=== PATIENT | female | born 1960 | race Caucasian/White ===

== ENCOUNTER 2019-11-05 06:05 | Day surgery (SDC) | payer MEDICARE ==
[~2019-11-05] VITALS: Ht 160 cm; Wt 67.6 kg
[~2019-11-05 06:05] MED LIST: Norco 5-325 Ta1 EACH PO
== END 2019-11-05 09:47 | disposition home or self-care (01) ==
LOC: ORSCSDS 06:05
PROVIDERS: Orthopaedic Surgery
PROC: 01S40ZZ Reposition Ulnar Nerve, Open Approach (ICD-10-PCS; principal; 2019-11-05 07:30)
DX: G56.21 Lesion of ulnar nerve, right upper limb (principal); J44.9 Chronic obstructive pulmonary disease, unspecified; F17.210 Nicotine dependence, cigarettes, uncomplicated
CPT/HCPCS: J0690; J1100; J1885; J2250; J2405; J2704; J2795; J3010

== ENCOUNTER 2020-10-17 10:33 | Inpatient (IN) | payer MEDICARE ==
[~2020-10-17] VITALS: Ht 160 cm; Wt 69.0 kg
[2020-10-17 11:18] LABS: BASOPHILS ABSOLUTE AUTO 0.11 K/mm3 (0.00-0.23); BASOPHILS PERCENT AUTO 1 % (0-2); EOSINOPHILS PERCENT AUTO 2 % (0-6); Hematocrit 41.7 % (33.0-51.0); Hemoglobin 13.6 g/dL (11.5-16.0); IMMATURE GRAN ABSOLUTE AUTO 0.28 K/mm3 (0.00-0.10); IMMATURE GRAN PERCENT AUTO 2 % (0-1); LYMPHOCYTES ABSOLUTE AUTO 2.38 K/mm3 (0.84-5.20); LYMPHOCYTES PERCENT AUTO 15 % (21-46); MONOCYTES ABSOLUTE AUTO 0.82 K/mm3 (0.16-1.47); MONOCYTES PERCENT AUTO 5 % (4-13); Mean Corpuscular HGB 31.3 pg (26.0-34.0); Mean Corpuscular HGB Conc 32.6 g/dL (31.5-36.5); Mean Corpuscular Volume 96 fL (80-100); Mean Platelet Volume 9.7 fL (9.1-12.4); NEUTROPHILS ABSOLUTE AUTO 12.23 K/mm3 (1.96-9.15); NEUTROPHILS PERCENT AUTO 76 % (41-73); Platelet Count 269 K/mm3 (150-400); RDW Standard Deviation 49.2 fL (35.1-46.3); Red Blood Cell Count 4.35 M/mm3 (3.80-5.20); White Blood Cell Count 16.12 K/mm3 (4.00-11.30)
[2020-10-17 11:45] LABS: Anion Gap 5 mmol/L (6-16); Blood Urea Nitrogen 15 mg/dL (8-24); Bun/Creatinine Ratio 23.8 (12.0-20.0); CO2, Blood 26 mmol/L (21-32); Calcium, Blood 8.8 mg/dL (8.5-10.1); Chloride, Blood 108 mmol/L (98-108); Creatinine, Blood 0.63 mg/dL (0.40-1.00); Glomerular Filtration Rate >60 (60-); Glucose, Blood 137 mg/dL (70-99); Potassium, Blood 4.3 mmol/L (3.5-5.5); Sodium, Blood 139 mmol/L (136-145)
--- NOTE | 2020-10-17 15:48 | NUR ---
PATIENT ARRIVED ON UNIT ON 10/17/2020 AT 1500. RIGHT HIP FX FROM FALLING OFF ROOF. VITAL SIGNS ARE WNL. SHE IS AWAKE AND ALERT AND ORIENTED X4. SHE IS CURRENTLY ON 2L OF OXYGEN. PT REPORTS THAT SHE IS ON OXYGEN "BECAUSE I WAS GIVEN A LOT OF PAIN MEDICATIONS IN THE ER THAT CAUSED MY O2 SAT TO GO LOW". SHE HAS SENSATION IN ALL EXTREMITIES AND CAN WIGGLE TOES. PT DENIES NUMBNESS AND TINGLING. HER RIGHT HIP IS SWOLLEN AND TENDER. WILL MEDICATE PER EMAR FOR PAIN. SHE IS CURRENTLY LAYING IN BED WITH CALL LIGHT WITHIN REACH. THE PLAN IS FOR SURGERY TOMORROW.
--- NOTE | 2020-10-17 18:36 | NUR ---
DR. BRADY AND I PUT ON A BUCKS TRACTION WITH A 5LB WEIGHT AT AROUND 0500 ON HER RIGHT LEG. PT REPORTS THAT HER PAIN FELT BETTER SHORTLY AFTER PLACEMENT OF BUCKS TRACTION.
--- NOTE | 2020-10-17 18:37 | NUR ---
SHIFT SUMMARY: NO SIGNIFICANT CHANGES SINCE ADMISSION. PT IS ALERT AND ORIENTED X4. VITAL SIGNS ARE WNL. PAIN IS CONTROLLED WITH LUNCH TRUCK DRIVER PUMP. SHE HAS A SCHUMACHER IN PLACE DRAINING CLEAR YELLOW URINE. SHE HAS BUCKS TRACTION ON HER LEFT LEG WITH A 5LB WEIGHT. PT STILL HAS SENSATION OF LOWER EXTREMITIES AND CAN WIGGLE TOES. SHE IS CURRENTLY EATING CRACKERS AND PUDDING WHILE LAYING IN BED. CALL LIGHT IS WITHIN REACH. THE PLAN IS FOR SURGERY TOMORROW WITH DR. PRADO. ALSO TO KEEP PAIN WITHIN CONTROL. SHE WILL BE NPO AT MIDNIGHT TONIGHT.
[2020-10-17 19:00] LABS: Influenza A, PCR Negative (NEGATIVE); Influenza B, PCR Negative (NEGATIVE); Resp Syncytial Virus, PCR Negative (NEGATIVE); SARS-Cov-2 (COVID-19) PCR, MMC Negative (NEGATIVE)
--- NOTE | 2020-10-18 05:16 | NUR ---
SHIFT SUMMARY R FEMUR FX, A/O X4, VSS, WAS TOLERATING PO BUT NPO SINCE MIDNIGHT FOR SURGERY TODAY, NON AMBULATORY W/ 5LB BUCKS TRACTION TO RLE, PAIN WELL CONTROLLED W/ LABORER YARD, PT C/O MILD ITCHING, WILL HAVE DAY RN GET ORDER FOR ANTIPURITIC, SCHUMACHER IN PLACE DRAINGING CLEAR YELLOW URINE, BIOX IN PLACE W/ LABORER YARD PER PROTOCOL. CALL LIGHT IN REACH, WILL CONTINUE TO MONITOR AND REPORT TO ONCOMING DAY RN.
--- NOTE | 2020-10-18 10:21 | NUR ---
PT TO OR AT THIS TIME
--- NOTE | 2020-10-18 16:53 | NUR ---
POST OP: REPORT RECEIVED FROM AMELIE, INSURANCE SALES EXECUTIVE. PT TO UNIT AT ABOUT 1600. UPON ASSESSMENT PT IS IN NO VISABLE DISTRESS, DROWSY, BUT AWAKENS TO VOICE. VSS, PT CONFUSED ABOUT WHERE SHE IS, BUT REMEMBERS HER FALL, WHO SHE IS, AND HER SPOUSE WHO IS AT BEDSIDE. ABLE TO SAY HER . CMS INTACT TO R LEG. DENIES N/T. SMALL AMT OF BLOOD TO AQUACEL DRESSING. WILL CTM
--- NOTE | 2020-10-18 19:34 | NUR ---
SUMMARY: NO ACUTE CHANGE POST OP. VSS, ORIENTED CURRENTLY. CONTINUES TO BE DROWSY, AWAKENS TO VOICE. MODERATE AMT OF BLOOD AT SURGICAL SITE, NOC RN MADE AWARE, TO BE CHANGED. NO ACUTE SAFETY CONCERNS, REPORT PASSED TO NOC ASHOK OQUENDO
--- NOTE | 2020-10-19 03:58 | NUR ---
SHIFT SUMMARY R GAMMA NAIL POD1, A/O X4, VSS, PT DROWSY AT START OF SHIFT BUT WAKES EASILY, TOLERATING PO, VOIDING VIA SCHUMACHER, POST OP BM USING BEDPAN, PASSING FLATUS, PAIN WELL CONTROLLED VIA PROCESS DESIGN ENGINEER. DRESSING ROUGHLY 50% SATURATED ON LOWER HALF, CHANGED DURING SHIFT ASSESSMENT. CALL LIGHT IN REACH, WILL CONTINUE TO MONITOR AND REPORT TO ONCOMING DAY RN.
[2020-10-19 04:53] LABS: BASOPHILS ABSOLUTE AUTO 0.04 K/mm3 (0.00-0.23); BASOPHILS PERCENT AUTO 0 % (0-2); EOSINOPHILS PERCENT AUTO 1 % (0-6); Hematocrit 26.4 % (33.0-51.0); Hemoglobin 8.6 g/dL (11.5-16.0); IMMATURE GRAN ABSOLUTE AUTO 0.03 K/mm3 (0.00-0.10); IMMATURE GRAN PERCENT AUTO 0 % (0-1); LYMPHOCYTES PERCENT AUTO 15 % (21-46); MONOCYTES ABSOLUTE AUTO 1.43 K/mm3 (0.16-1.47); MONOCYTES PERCENT AUTO 12 % (4-13); Mean Corpuscular HGB 31.5 pg (26.0-34.0); Mean Corpuscular HGB Conc 32.6 g/dL (31.5-36.5); Mean Corpuscular Volume 97 fL (80-100); Mean Platelet Volume 9.9 fL (9.1-12.4); NEUTROPHILS ABSOLUTE AUTO 8.86 K/mm3 (1.96-9.15); NEUTROPHILS PERCENT AUTO 72 % (41-73); Platelet Count 177 K/mm3 (150-400); RDW Coefficient Variation 13.7 % (11.7-14.2); RDW Standard Deviation 48.6 fL (35.1-46.3); Red Blood Cell Count 2.73 M/mm3 (3.80-5.20); White Blood Cell Count 12.36 K/mm3 (4.00-11.30)
--- NOTE | 2020-10-19 10:20 | NUR ---
DR PRADO TO SEE PT. PT DISCUSSED PAIN MGMT WITH
--- NOTE | 2020-10-19 14:11 | NUR ---
PT RECENTLY WORKING WITH THERAPY.
--- NOTE | 2020-10-19 17:06 | NUR ---
SHIFT SUMMARY PT EATING AND DRINKING. PT HAVING BM'S. PT HAS SCHUMACHER IN PLACE. PT REPORTS PAIN TOLERABLE ON EDUCATION TECHNICIAN FOR PAIN. PT REPORTS DOES NOT DO WELL ON PO PAIN MEDICATION THAT SHE HAS NAUSEA ON MOST PAIN MEDICATIONS. PT BEEN PLEASANT AND COOPERATIVE. PT BEEN ASSISTED WITH ADL'S PRN. PT WORKED WITH THERAPY EARLIER TODAY. PT USING [employer] APPR.
--- NOTE | 2020-10-20 04:45 | NUR ---
SHIFT SUMMARY PT IS A/O X4, USING CALL LIGHT APPROPRIATELY. PT HAS BEEN USING EITHER BEDPAN OR BSC FOR BM'S DURING THE SHIFT. SCHUMACHER IN PLACE OVERNIGHT AND REMOVED AT 0430. PT REPORTS PAIN IS MANAGED WITH TELEVISION SCRIPT WRITER. PT USING 1L 02 NC TO MAINTAIN O2 SAT ABOVE 92%; BIOX IN PLACE OVERNIGHT. DENIES SOB. NO ACUTE CHANGES OVERNIGHT. PT RESTING AT THIS TIME WITH CALL LIGHT IN REACH.
--- NOTE | 2020-10-20 09:37 | NUR ---
THERAPY IN ROOM.
--- NOTE | 2020-10-20 10:15 | NUR ---
PT REPORTS MOTIVATED TO BE DC'D, REPORTS ABLE TO TAKE NORCO WITHOUT DIFFICULTY. DR NOTIFIED, SEE ORDERS. PT APPEARS TO HAVE TAKEN 1.3 MG OF DILAUDED IN LAST 4 HOURS PER TRUCK RENTAL CLERK. PT DRINKING WELL.
--- NOTE | 2020-10-20 11:12 | NUR ---
SECURITY ASSURANCE SPECIALIST OUT OF MEDICINE. PT REPORTS WILL TRY AND JUST HAVE PAIN PILL AND TRY ONE TO START. PT GIVEN ONE PAIN PILL WITH SNACK.
--- NOTE | 2020-10-20 14:10 | NUR ---
DR PRADO RECENTLY HERE TO SEE PT, REPORTS PT MAY D/C TODAY IF CLEARS THERAPY.
--- NOTE | 2020-10-20 14:37 | NUR ---
THERAPY AND TUB RIDER IN ROOM TO SEE PT. FAMILY IN ROOM.
--- NOTE | 2020-10-20 15:34 | NUR ---
PT TO IMAGING BY CART.
--- NOTE | 2020-10-20 16:20 | NUR ---
PT BEEN BACK FROM IMAGING, DR PRADO NOTIFIED. PT DISCHARGE CANCELLED PT RECCOMEND TO GO TO SNF PER THERAPY. CASER UP AWARE. WHARF TENDER HEAD NOTIFIED.
--- NOTE | 2020-10-20 16:27 | NUR ---
SHIFT SUMMARY PT EATING AND DRINKING, VOIDING, PASSING GAS. PT BEEN ASSISTED WITH ADL'S PRN. PT HAD XRAY THIS AFTERNOON. PT WORKED WITH THERAPY, RECC TO GO TO SNF. DR WORTHY BEEN NOTIFIED, CANCELLED DISCHARGE FOR TODAY. BOILERMAKER LOFTSMAN ASSISTED WITH PT/FAMILY.
--- NOTE | 2020-10-20 20:02 | NUR ---
ASSUMED CARE. PT IN BED STATES BEEN DOING WELL TODAY BUT STILL HAVING DIFFICULTY BENDING KNEE. ENCOURAGED INCREASING MOBILITY BUT FOLLOWING WB RESTRICTIONS. PT WAS ABLE TO GET OOB AND TRANSFER SELF TO BSC WITH MIN ASSIST WITH THE RLE AND PT DID TOLERATE THAT WELL BUT STILL HAVING TROUBLE BENDING THE KNEE. THOUGHT PT COULD BENEFIT FROM CPM, SO CALLED DR. PRADO EXPRESSING THIS. DR. PRADO REVIEWED THE XRAY WHICH LOOKED GOOD SO DID VERBALIZED ORDER FOR CPM. PLACED ON PT AND SET FLEX AT 0-40 DEGREES AND PT IS TOLERATING IT GREAT. WILL CONT TO MONITOR FOR CHANGES IN PAIN. ICE PLACED TO HIP. CALL LIGHT IN REACH.
--- NOTE | 2020-10-20 22:53 | NUR ---
CPM OFF, PT WAS ABLE TO TOLERATE FLEX OF 0-45 DEGREES. WILL LEAVE OFF FOR NOW, PT DOES STATE FEELING A LITTLE MORE SORE IN THE HIP FLEXER/GROIN AREA. MEDICATED FOR PAIN. CALL LIGHT IS WITHIN REACH.
--- NOTE | 2020-10-21 03:27 | NUR ---
ASSUMED CARE PT AWOKE WITH NEED TO USE BSC. PT PIVOT TRANSFER TO BSC WITH MODERATE ASSIST, BACK TO BED. INCREASED DISCOMFORT DECREASED WITH 0.5MG IV DILAUDID + 1 PAIN PILL PER REQUEST. PT REPOSITIONED FOR COMFORT, NOW RESTING COMFORTABLY IN BED WITH CALL LIGHT IN REACH.
--- NOTE | 2020-10-21 05:07 | NUR ---
LOW PAIN AT THIS TIME.
--- NOTE | 2020-10-21 05:49 | NUR ---
SHIFT SUMMARY ASSUMED CARE OF PT AT 0230. RESTING WELL THIS AM. DANGLE AT BEDSIDE TO TRANSFER TO BSC X1 THIS AM WITH INCREASED DISCOMFORT POST MOVEMENT. DISCOMFORT DECREASED WITH 1 PAIN PILL PER ORDERS + 0.5MG IV DILAUDID FOR BREAKTHROUGH POST TRANSFER TO BSC / REPOSITIONING IN BED. REFUSING ICE THIS AM. PPP, DENIES N/T BLE, MOVES TOES WELL. SWELLING TO HIP NOTED, NO CHANGE FROM YESTARDAY PER PT. PT CURRENTLY RESTING IN BED WITH CALL LIGHT IN REACH.
[2020-10-21] MEDS ORDERED: DOCU100 (09:56)
[2020-10-21] MEDS ORDERED: HYDROCODONE-AC1 EA10 PO (09:57)
[2020-10-21] MEDS ORDERED: ONDA4 PO (09:57)
[2020-10-21] MEDS ORDERED: ASPI325EC PO (09:58)
--- NOTE | 2020-10-21 15:48 | NUR ---
DISCHARGE PT WAS PROVIDED WITH WRITTEN AND VERBAL DISCHARGE INSTRUCTIONS, SHE VERBALIZED UNDERSTANDING. PT PROVIDED WITH SCRIPTS AND CLEAN DRESSINGS. PT WAS ESCORTED OUT IN W/C BY KENYA GODWIN. PAIN MANAGED AT TIME OF DISCHARGE.
== END 2020-10-21 15:45 | disposition home health service (06) | DRG 482 ==
LOC: ER 10:33 → SURS 10:34
PROVIDERS: Emergency Medicine; Orthopaedic Surgery; ADMIT Surgery
PROC: 0QS604Z Reposition Right Upper Femur with Internal Fixation Device, Open Approach (ICD-10-PCS; principal; 2020-10-18 09:30)
DX: S72.141A Displaced intertrochanteric fracture of right femur, initial encounter for closed fracture (principal); F17.210 Nicotine dependence, cigarettes, uncomplicated; W13.2XXA Fall from, out of or through roof, initial encounter; Z20.828 Contact with and (suspected) exposure to other viral communicable diseases
CPT/HCPCS: 0241U; 36415; 70450; 71045; 72070; 72100; 72125; 73502; 73552; 73700; 76377; 80048; 85025; 86850; 86900; 86901; 93005; 93010; 94762; 96374-59; 96375-59; 96376-59; 97110; 97116; 97162; 97166; 97530; 97535; 99285-25; C1713; C1769; J0690; J1100; J1170; J1650; J1885; J2250; J2405; J2704; J2765; J3010; J7030; J7120

== ENCOUNTER 2021-10-06 07:34 | Day surgery (SDC) | payer MEDICARE ==
[~2021-10-06] VITALS: Ht 160 cm; Wt 68.3 kg
[~2021-10-06 07:34] MED LIST changes: +ASPI325EC PO; +DOCU100; +HYDROCODONE-AC1 EA10 PO; +ONDA4 PO
--- NOTE | 2021-10-06 08:11 | NUR ---
Pre-Op teaching done. Pt verbalizes understanding. History, Chart, Medications and Allergies reviewed before start of procedure.Patient States Post-Procedure ride home has been arranged.
--- NOTE | 2021-10-06 08:22 | NUR ---
2 MISSED ATTEMPTS, R FOREARM, R HAND
--- NOTE | 2021-10-06 08:37 | NUR ---
10/06/21 0837 DANA CHAND History, Chart, Medications and Allergies reviewed before start of procedure. Patient confirms NPO status and agrees with scheduled surgery. 3-LEAD EKG REVIEWED WITH PHYSICIAN PRIOR TO START OF PROCEDURE. MONITOR INTACT WITH CONTINUOUS PULSE OXIMETRY AND INTERMITTENT BP. PATIENT DETERMINED TO BE ASA APPROPRIATE FOR PROPOFOL SEDATION PRIOR TO START OF PROCEDURE BY DR. SUNG. O2 VIA N/C INTACT THROUGHOUT SEDATION/PROCEDURE.
--- NOTE | 2021-10-06 09:36 | NUR ---
DISCHARGE SUMMARY PT A&OX4, VSS, STEFANO PO, DENIES PAIN, AMBULATORY, DECLINED WC, LEFT WITH LOAN REPRESENTATIVE. IV DC'D.
== END 2021-10-06 23:52 | disposition home or self-care (01) ==
LOC: ORSCMMR 07:34 → ORD 08:30 → ORSCMMR 23:52
PROVIDERS: Internal Medicine Gastroenterology
PROC: 0DBP8ZX Excision of Rectum, Via Natural or Artificial Opening Endoscopic, Diagnostic (ICD-10-PCS; principal; 2021-10-06 08:30)
PROC: 0DBH8ZX Excision of Cecum, Via Natural or Artificial Opening Endoscopic, Diagnostic (ICD-10-PCS; principal; 2021-10-06 08:30)
DX: K62.5 Hemorrhage of anus and rectum (principal); D12.0 Benign neoplasm of cecum; K62.1 Rectal polyp; K64.4 Residual hemorrhoidal skin tags; K57.30 Diverticulosis of large intestine without perforation or abscess without bleeding
CPT/HCPCS: 88305; J2704; J7120

== ENCOUNTER → 2024-06-06 | Outpatient (CLI) | payer MEDICARE ==
[2024-06-06 13:29] LABS: BASOPHILS ABSOLUTE AUTO 0.09 K/mm3 (0.00-0.23); BASOPHILS PERCENT AUTO 1 % (0-2); EOSINOPHILS ABSOLUTE AUTO 0.31 K/mm3 (0.00-0.68); EOSINOPHILS PERCENT AUTO 3 % (0-6); Hematocrit 43.3 % (33.0-51.0); Hemoglobin 14.3 g/dL (11.5-16.0); IMMATURE GRAN ABSOLUTE AUTO 0.11 K/mm3 (0.00-0.10); IMMATURE GRAN PERCENT AUTO 1 % (0-1); LYMPHOCYTES ABSOLUTE AUTO 2.49 K/mm3 (0.84-5.20); LYMPHOCYTES PERCENT AUTO 21 % (21-46); MONOCYTES ABSOLUTE AUTO 0.67 K/mm3 (0.16-1.47); MONOCYTES PERCENT AUTO 6 % (4-13); Mean Corpuscular HGB 32.1 pg (26.0-34.0); Mean Corpuscular Volume 97 fL (80-100); NEUTROPHILS ABSOLUTE AUTO 8.25 K/mm3 (1.96-9.15); NEUTROPHILS PERCENT AUTO 69 % (41-73); Platelet Count 313 K/mm3 (150-400); RDW Coefficient Variation 13.7 % (11.7-14.2); RDW Standard Deviation 49.5 fL (35.1-46.3); Red Blood Cell Count 4.45 M/mm3 (3.80-5.20); White Blood Cell Count 11.92 K/mm3 (4.00-11.30)
[2024-06-06 14:26] LABS: Alanine Aminotransfer (ALT/SGP 29 U/L (12-78); Albumin, Blood 3.9 g/dL (3.4-5.0); Albumin/Globulin Ratio 1.2 (0.8-1.8); Alk Phos 92 U/L (50-136); Anion Gap 7 mmol/L (3-11); Aspartate Aminotrans (AST/SGOT 22 U/L (12-37); Bilirubin, Total 0.4 mg/dL (0.1-1.0); Blood Urea Nitrogen 10 mg/dL (8-24); Bun/Creatinine Ratio 15.3 (12.0-20.0); CO2, Blood 27 mmol/L (21-32); Chloride, Blood 111 mmol/L (98-108); Cholesterol 223 mg/dL (50-200); Creatinine, Blood 0.65 mg/dL (0.40-1.00); Globulin, Blood 3.2 g/dL (2.2-4.0); Glomerular Filtration Rate 98 (60-); Glucose, Blood 105 mg/dL (70-99); HDL Cholesterol 56 mg/dL (>39); LDL/HDL RATIO 2.6; Low Density Lipoprotein Chol 148 mg/dL (0-110); Potassium, Blood 3.9 mmol/L (3.5-5.5); Sodium, Blood 141 mmol/L (136-145); Total Protein, Blood 7.1 g/dL (6.4-8.2); Triglycerides 95 mg/dL (30-160); Very Low Density Lipoprot Chol 19 mg/dL (6-32)
== END | disposition home or self-care (01) ==
LOC: LAB SHORT 11:33 → LAB 11:33
PROVIDERS: Student in an Organized Health Care Education/Training Program
DX: E78.2 Mixed hyperlipidemia (principal); E83.110 Hereditary hemochromatosis; J44.1 Chronic obstructive pulmonary disease with (acute) exacerbation
CPT/HCPCS: 80053; 80061; 85025

== ENCOUNTER → 2025-07-29 | Outpatient (CLI) | payer MEDICARE ==
[2025-07-29 13:51] LABS: BASOPHILS ABSOLUTE AUTO 0.08 K/mm3 (0.00-0.23); BASOPHILS PERCENT AUTO 1 % (0-2); EOSINOPHILS ABSOLUTE AUTO 0.23 K/mm3 (0.00-0.68); EOSINOPHILS PERCENT AUTO 2 % (0-6); Hematocrit 43.2 % (33.0-51.0); Hemoglobin 13.9 g/dL (11.5-16.0); IMMATURE GRAN ABSOLUTE AUTO 0.04 K/mm3 (0.00-0.10); IMMATURE GRAN PERCENT AUTO 0 % (0-1); LYMPHOCYTES ABSOLUTE AUTO 2.44 K/mm3 (0.84-5.20); LYMPHOCYTES PERCENT AUTO 23 % (21-46); MONOCYTES ABSOLUTE AUTO 0.52 K/mm3 (0.16-1.47); MONOCYTES PERCENT AUTO 5 % (4-13); Mean Corpuscular HGB Conc 32.2 g/dL (31.5-36.5); Mean Corpuscular Volume 96 fL (80-100); NEUTROPHILS ABSOLUTE AUTO 7.38 K/mm3 (1.96-9.15); NEUTROPHILS PERCENT AUTO 69 % (41-73); NRBC ABSOLUTE 0.00 K/mm3 (0.00-0.02); NRBC Auto 0.0 /100 WBC (0.0-0.2); Platelet Count 316 K/mm3 (150-400); RDW Coefficient Variation 14.3 % (11.7-14.2); RDW Standard Deviation 50.4 fL (35.1-46.3)
[2025-07-29 15:10] LABS: Alanine Aminotransfer (ALT/SGP 30 U/L (12-78); Albumin, Blood 4.0 g/dL (3.4-5.0); Albumin/Globulin Ratio 1.3 (0.8-1.8); Anion Gap 6 mmol/L (3-11); Aspartate Aminotrans (AST/SGOT 25 U/L (12-37); Bilirubin, Total 0.3 mg/dL (0.1-1.0); Blood Urea Nitrogen 11 mg/dL (8-24); CHOL/HDL RATIO 4.2; CO2, Blood 26 mmol/L (21-32); Calcium, Blood 9.3 mg/dL (8.5-10.1); Chloride, Blood 108 mmol/L (98-108); Cholesterol 221 mg/dL (50-200); Creatinine, Blood 0.61 mg/dL (0.40-1.00); Globulin, Blood 3.0 g/dL (2.2-4.0); Glucose, Blood 98 mg/dL (70-99); HDL Cholesterol 52 mg/dL (>39); LDL/HDL RATIO 2.7; Low Density Lipoprotein Chol 142 mg/dL (0-110); Potassium, Blood 4.1 mmol/L (3.5-5.5); Sodium, Blood 136 mmol/L (136-145); Thyroid Stimulating Hormone 0.770 uIU/mL (0.360-4.800); Total Protein, Blood 7.0 g/dL (6.4-8.2); Triglycerides 133 mg/dL (30-160); Very Low Density Lipoprot Chol 26 mg/dL (6-32)
== END ==
LOC: LAB 08:45 → LAB SHORT 08:45
PROVIDERS: Student in an Organized Health Care Education/Training Program
DX: E78.2 Mixed hyperlipidemia (principal); R53.83 Other fatigue
CPT/HCPCS: 80053; 80061; 84443; 85025